=== PATIENT | male | born 1935 | race Caucasian/White ===

== ENCOUNTER 2016-08-20 06:52 | Day surgery (SDC) | payer MEDICARE, OTHER ==
[2016-08-20] VITALS (7 sets, daily range): BP systolic 119–141; BP diastolic 60–75; PULSE 60–89; RESP 16–20; TEMP 97.9–98; O2SAT 93–99
[~2016-08-20] VITALS: Ht 171.4 cm; Wt 86.0 kg
[~2016-08-20 06:52] MED LIST: B-122000 PO; CHOL50006 PO; CHRO200C PO; ENAL2.5 PO; FISH1000 PO; FLUT1INH7 PO; HUMSS SQ; LANTUS2P SC; MIRA25TA PO; SIMV40 PO; SPIRCAP INH; TAB-TAB PO; XANA2TAB2 PO
[2016-08-20] MEDS ORDERED: CHRO200C PO (07:29)
[2016-08-20] MEDS ORDERED: XANA2TAB2 PO (07:29)
[2016-08-20] MEDS ORDERED: ENAL2.5T PO (07:29)
[2016-08-20] MEDS ORDERED: D 50CAP (07:29)
[2016-08-20] MEDS ORDERED: HUMALOG SQ (07:29)
[2016-08-20] MEDS ORDERED: MULT1TAB84 PO (07:29)
[2016-08-20] MEDS ORDERED: FLUT1INH7 INH (07:29)
[2016-08-20] MEDS ORDERED: FISH500C PO (07:29)
[2016-08-20] MEDS ORDERED: ZOCO40TA PO (07:29)
[2016-08-20] MEDS ORDERED: LANTUS2P SQ (07:29)
[2016-08-20] MEDS ORDERED: CYAN5SUB SL (07:29)
[2016-08-20] MEDS ORDERED: SODIUM CHLOR 0.9% 1000 ML INJ 1,000 ML IV SCH (07:30)
[2016-08-20 07:55] LABS: APTT (PATIENT) 43.3 SEC (24.3-30.1); PROTHROMBIN TIME - PATIENT 11.2 SEC (9.8-11.6)
[2016-08-20 08:00] LABS: BICARBONATE 28.3 MEQ/L (21.0-32.0); POTASSIUM 4.1 MEQ/L (3.5-5.1)
[2016-08-20 10:04] LABS: GROSS BLOOD TUBE #1 0 (0); GROSS BLOOD TUBE #2 TRACE (0); GROSS BLOOD TUBE #3 TRACE (0); SUPERNATE COLOR TUBE #1 CLEAR (CLEAR); SUPERNATE COLOR TUBE #2 CLEAR (CLEAR); SUPERNATE COLOR TUBE #3 CLEAR (CLEAR); VOLUME TUBE # 1 2.9 ML; VOLUME TUBE # 4 4.8 ML
[2016-08-20 10:05] LABS: CSF LYMPHOCYTES 22 %; CSF MONOCYTES 16 %; CSF NEUTROPHILS 62 %; SUPERNATE COLOR TUBE #4 CLEAR (CLEAR); WBC TUBE #4 2 /MM3 (0-10)
[2016-08-20 10:09] LABS: GROSS BLOOD TUBE #4 TRACE (0)
--- NOTE | 2016-08-20 11:21 | RADRPT ---
EXAM DATE/TIME: 08/20/2016 09:21 [facility] COMPARISON: LUMBAR PUNCTURE, August 08, 2014, 7:51. INDICATIONS : Patient with history of right leg weakness and thoracic spinal cord lesion in need of lumbar puncture . MEDICAL HISTORY : HTN, Diabetes, COPD, Kidney stones, Dialysis, Colorectal cancer, Ureteral cancer, Chemotherapy, Lung cancer SURGICAL HISTORY : Partial colectomy, Colostomy reversal, Lung biopsy ENCOUNTER: Initial ACUITY: 3 months PAIN SCORE: 0/10 LUMBAR PUNCTURE TIME: 0838 hours FLUORO TIME: 0.4 minutes IMAGE SERIES: 0 ACCESS LEVEL: L2-3 FLUID: 17 cc of clear CSF was collected and sent to the laboratory for analysis. PROCEDURE : 1. Fluoroscopic guided lumbar puncture. The risks, benefits and alternatives to the procedure were explained and verbal and written consent w as obtained. The site was prepped in sterile fashion. Full sterile technique was used, including ca p, mask, sterile gloves and gown and a large sterile sheet. Hand hygiene and 2% chlorhexidine and/or betadine/alcohol prep was utilized per protocol for cutaneous antisepsis. The skin and subcutaneous tissues were infiltrated with local anesthetic solution. With fluoroscopic guidance the lumbar thecal sac was punctured at the level above. The fluid describ ed above was removed without difficulty. The patient tolerated the procedure well and there were no complications. CONCLUSION: Uncomplicated fluoroscopically guided lumbar puncture. Marvin Elizabeth MD on August 20, 2016 at 11:20 Board Certified Radiologist. This report was verified electronically.
[2016-08-20] MEDS ORDERED: ACETAMINOPHEN 325 MG TAB PO PRN (11:45)
[2016-08-20] MEDS ORDERED: oxyCODONE/ACETAMINOPHEN 5 MG/325 MG TAB PO PRN (11:45)
[2016-08-21 15:49] LABS: OLIGOCLONAL BANDING CSF 1 bands (()); OLIGOCLONAL BANDING INTERPRET 0 bands (<4); OLIGOCLONAL BANDING SERUM 1 bands (())
== END 2016-08-20 12:00 | disposition home or self-care (01) ==
LOC: HROP 06:52 → HRIP 06:53 → HROP 12:00
DX: R53.1 Weakness (principal); G95.9 Disease of spinal cord, unspecified; J44.9 Chronic obstructive pulmonary disease, unspecified; I10 Essential (primary) hypertension; E11.9 Type 2 diabetes mellitus without complications; Z99.2 Dependence on renal dialysis; Z85.118 Personal history of other malignant neoplasm of bronchus and lung; Z85.038 Personal history of other malignant neoplasm of large intestine; Z87.442 Personal history of urinary calculi; Z85.46 Personal history of malignant neoplasm of prostate; Z87.891 Personal history of nicotine dependence
CPT/HCPCS: 62270; 77003; 80048; 82945; 83916; 84157; 85610; 85730; 88112; 89051; J1642

== ENCOUNTER 2016-12-05 06:10 | Day surgery (SDC) | payer MEDICARE, OTHER ==
[~2016-12-05] VITALS: Ht 171.4 cm; Wt 87.0 kg
[~2016-12-05 06:10] MED LIST changes: -B-122000 PO; -CHOL50006 PO; +CYAN5SUB SL; +D 50CAP PO; -ENAL2.5 PO; +ENAL2.5T PO; -FISH1000 PO; +FISH500C PO; +FLUT1INH7 INH; -FLUT1INH7 PO; +HUMALOG SQ; -HUMSS SQ; -LANTUS2P SC; +LANTUS2P SQ; -MIRA25TA PO; +MULT1TAB84 PO; -SIMV40 PO; -SPIRCAP INH; -TAB-TAB PO; +ZOCO40TA PO
[2016-12-05] MEDS ORDERED: CYAN2500 PO (06:51)
[2016-12-05] MEDS ORDERED: MULT-65 PO (06:51)
[2016-12-05 07:00] VITALS: BP 171/94; PULSE 76; RESP 18; TEMP 98; O2SAT 94
[2016-12-05] MEDS ORDERED: ceFAZolin 2 GM PREMIX 50 ML - implanted port removal IV SCH (07:00)
[2016-12-05] MEDS ORDERED: SODIUM CHLORIDE 0.9% 1000 ML IV SCH (07:00)
[2016-12-05] MEDS ORDERED: MIDAZOLAM HCL 2 MG/2 ML VIAL ONE ×2 (08:11)
[2016-12-05 09:20] VITALS: BP 206/103; PULSE 76; RESP 18; TEMP 97.2; O2SAT 92
[2016-12-05 09:35] VITALS: BP 191/102; PULSE 75; RESP 18; O2SAT 97
--- NOTE | 2016-12-05 09:59 | PD.RAD ---
Post Procedure Progress Note Pre Procedure Diagnosis: (1) Cancer of sigmoid colon Post Procedure Diagnosis: (1) Cancer of sigmoid colon Procedure Date: Dec 05, 2016 Supervising Radiologist: Marvin Elizabeth Proceduralist/Assist: Tyrese Lopez RT(R) Anesthesia: Conscious Sedation Plan of Activity Patient to Unit: ROPU Patient Condition: Good See PACS Report for procedural detail/treatment Central Venous Access Device Procedure 1 Left Internal Jugular Infusaport Removal single lumen Marvin Elizabeth MD Dec 05, 2016 09:59
[2016-12-05] MEDS ORDERED: SODIUM CHLORIDE 0.9% FLUSH 10 ML FLUSH IVF PRN (10:00)
[2016-12-05 10:05] VITALS: BP 140/106; PULSE 75; RESP 18; O2SAT 94
[2016-12-05 10:35] VITALS: BP 161/84; PULSE 74; RESP 18; O2SAT 96
[2016-12-05] MEDS ORDERED: ENALAPRIL MALEATE 2.5 MG TAB PO ONE (11:00)
--- NOTE | 2016-12-05 12:36 | RADRPT ---
EXAM DATE/TIME: 12/05/2016 00:00 [facility] COMPARISON: No previous studies available for comparison. INDICATIONS : Patient no longer needs left infusaport . MEDICAL HISTORY : 1. Lung cancer 2. colon cancer 3. bladder cancer 4. Devics disease 5. DM 6. HTN 7. kidney stones SURGICAL HISTORY : 1. Appendectomy 2. Lt infusaport 3. Colon resection 4. rt lung bx 5. ileostomy reversal ENCOUNTER: Initial ACUITY: > 1 year PAIN SCORE: 0/10 SEDATION TIME: 30 minutes 1.) 2 mg midazolam (Versed) IV 2.) 100 mcg fentanyl (Sublimaze) IV Prophylactic antibiotics were administered with appropriate pre-procedure timing. Vancomycin within 2 hrs of procedure, Ancef (or alternative) within 1 hr of procedure. PROCEDURE : 1. Removal of Jnhgry-o-adaf. 2. Conscious sedation with continuous EKG and oximetry monitoring. The risk, benefits and potential complications of Pzqrjf-m-Wnkr removal were discussed. Written conse nt was obtained. The patient was placed supine. The chest wall was prepped in sterile fashion. Full sterile techniqu e was used, including cap, mask, sterile gloves and gown, and a large sterile sheet. Hand hygiene an d 2% chlorhexidine and/or Betadine/alcohol prep was utilized per protocol for cutaneous antisepsis. The skin and subcutaneous tissues were infiltrated with local anesthetic solution. A small incision w as made, the subcutaneous pocket was opened. The port was dissected from the subcutaneous tissues and easily removed in one piece. The pocket incision was closed with subcuticular Vicryl suture. Steri -Strips were applied. Conscious sedation was performed with the prescribed dosages and duration as above in the presence of an independent trained radiology nurse to assist in the monitoring of the patient. EKG and oximetry remained stable throughout the procedure. The patient tolerated the procedure well and there were no complications. The patient was sent to post anesthesia recovery in stable condition. CONCLUSION: Uncomplicated port removal as above. Marvin Elizabeth MD on December 05, 2016 at 12:34 Board Certified Radiologist. This report was verified electronically.
--- NOTE | 2016-12-05 12:36 | RADRPT ---
EXAM DATE/TIME: 12/05/2016 07:50 [facility] COMPARISON: No previous studies available for comparison. INDICATIONS : Patient needs access for Poart removal . MEDICAL HISTORY : 1. Bladder cancer 2. colon cancer 3.lung cancer 4. Devics disease SURGICAL HISTORY : 1. Appendectomy 2. lt infusaport 3. colon 4. rt lung bx 5. ileostomy reversal ENCOUNTER: Initial ACUITY: >1 year PAIN SCORE: 0/10 IMAGE SERIES: 0 ACCESS: Left basilic vein DEVICE(S): 1.) 3/4 Mexican Dilator PROCEDURE : 1. Ultrasound guided venous access. The risks, benefits and alternatives to the procedure were explained and verbal and written consent w as obtained. The site was prepped in sterile fashion. Full sterile technique was used, including ca p, mask, sterile gloves and gown and a large sterile sheet. Hand hygiene and 2% chlorhexidine and/or betadine/alcohol prep was utilized per protocol for cutaneous antisepsis. Sterile gel and sterile p robe cover were utilized for ultrasound guidance. The skin and subcutaneous tissues were infiltrate d with local anesthetic solution. With ultrasound guidance the prescribed vein was punctured for venous access. A 4 Mexican dilator was placed and was flushed and locked with heparin. The patient tolerated procedure well and there were n o complications. CONCLUSION: Uncomplicated ultrasound guided venous access. Marvin Elizabeth MD on December 05, 2016 at 12:34 Board Certified Radiologist. This report was verified electronically.
== END 2016-12-05 11:30 | disposition home or self-care (01) ==
LOC: HROP 06:10 → HRIP 06:13 → HROP 11:30
PROVIDERS: ATTEND Internal Medicine Hematology & Oncology
DX: Z45.2 Encounter for adjustment and management of vascular access device (principal); C18.7 Malignant neoplasm of sigmoid colon
CPT/HCPCS: 36410; 36590; 76937; 99152; 99153; J0690; J2250; J3010

== ENCOUNTER 2017-02-08 19:06 | Emergency (ER) | payer MEDICARE, OTHER ==
[~2017-02-08] VITALS: Ht 172.7 cm; Wt 91.0 kg
[~2017-02-08 19:06] MED LIST changes: +CYAN2500 PO; -CYAN5SUB SL; +MULT-65 PO; -MULT1TAB84 PO
[2017-02-08 19:36] VITALS: BP 178/85; PULSE 95; RESP 18; TEMP 98.3; O2SAT 94
--- NOTE | 2017-02-08 19:46 | PD ---
HPI Chief Complaint: Facial Pain or Swelling Time Seen by Provider: 19:45 Travel History International Travel<30 days: No Contact w/Intl Traveler<30days: No History of Present Illness HPI 81-year-old male came to the emergency room with history of facial swelling that started about 2 hours prior to coming to the emergency room. His is giving most of the history since patient is having trouble articulating given the swelling. His right side of the face that she is swollen visibly. Patient says his tongue feels okay but he is having some pain when he tries to swallow. This is never happened to him before. Patient is on enalapril for blood pressure that he's been on for past 2 years. No respiratory distress or drooling currently. Vital signs are otherwise stable. [facility] Past Medical History Narrative Medical list of her past medical, surgical, social and family history is reviewed from the nursing note. Arthritis: Yes Asthma: No Autoimmune Disease: No Anxiety: No Depression: No Heart Rhythm Problems: Yes (01/2015) Cancer: Yes (PROSTATE, BLADDER-2004, Colon 2014, LUNG) Cardiovascular Problems: Yes (CHOLESTEROL, 4CM AAA) High Cholesterol: No Chemotherapy: No Chest Pain: No Congestive Heart Failure: No COPD: Yes (ADVAIR TWICE DAY AND SPIRIVA) Cerebrovascular Accident: No Diabetes: Yes Endocrine: Yes Gastrointestinal Disorders: Yes (ILEOSTOMY reversed 04/22/2015) GERD: No Genitourinary: Yes ( bladder CA) Hepatitis: No Hiatal Hernia: No Hypertension: Yes (pt takes preventive high blood pressure meds) Immune Disorder: No Implanted Vascular Access Dvce: Yes Kidney Stones: Yes (once) Musculoskeletal: Yes (ARTHRITIS) Neurologic: Yes (FELL SEVERAL TIMES LAST YEAR, NEUROPATHY) Psychiatric: No Reproductive: No Respiratory: Yes (COPD; lung nodule rightupper lobe - 01/2015) Immunizations Current: Yes Migraines: No Radiation Therapy: Yes (2005 - 39 days of treatment) Renal Failure: Yes (01/2015) Seizures: No Sleep Apnea: No Thyroid Disease: No Ulcer: No Past Surgical History Abdominal Surgery: Yes (APPY 1950; PARTIAL COLECTOMY/ ILEOSTOMY) AICD: No Appendectomy: Yes Arteriovenous Shunt: No Body Medical Devices: hardware left wrist Cardiac Surgery: No Ear Surgery: No Endocrine Surgery: No Eye Surgery: No Genitourinary Surgery: Yes (CYSTO/ TURBT) Gynecologic Surgery: No Insulin Pump: No Joint Replacement: No Oral Surgery: Yes (tonsillectomy) Pacemaker: No Thoracic Surgery: No Other Surgery: Yes (bilat hands) Social History Alcohol Use: Yes (SOCIAL-beer) Tobacco Use: No (quit 8 years ago) Substance Use: No Allergies-Medications (Allergen,Severity, Reaction): Coded Allergies: CARROLL Inhibitors (Verified Allergy, Severe, Swelling, 02/09/17) ANGIOEDEMA fire ant (Unverified Allergy, Severe, 02/08/17) TONGUE SWELLING prednisone (Unverified Allergy, Severe, RASH, 02/08/17) terbinafine (Unverified Allergy, Mild, rash, 02/08/17) *MDRO Multi-Drug Resistant Organism (Verified Adverse Reaction, Unknown, 02/08/17) 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 Reported Meds & Prescriptions Reported Meds & Active Scripts Active Hydralazine HCl 25 Mg Tablet 25 Mg PO BID Medrol Dosepak (Methylprednisolone) 4 Mg Dspk 4 Mg PO DIRECTED Per Pharmacist direction Reported Diphenhydramine (Diphenhydramine HCl) 25 Mg Tab 25 Mg PO Q6H PRN Multi-Vitamin Daily (Multiple Vitamin) 1 Tab Tab 1 Tab PO DAILY B-12 (Cyanocobalamin) 2,500 Mcg Tab 2,500 Mcg PO DAILY Zocor (Simvastatin) 40 Mg Tab 40 Mg PO DAILY Fish Oil ([place]-3 Fatty Acids) 500 Mg Cap 600 Mg PO DAILY Humalog Inj (Insulin Human Lispro) 1,000 Unit/10 Ml Vial 6 Units SQ TIDAC Lantus Inj (Insulin Glargine) 1,000 Unit/10 Ml Vial 34 Units SQ HS Breo Ellipta Inh (Fluticasone/Vilanterol) 200-25 Mcg/Act Inh 1 Puff INH DAILY Use daily at the same time. Enalapril (Enalapril Maleate) 2.5 Mg Tab 2.5 Mg PO DAILY Chromium Picolinate Unknown Strength Cap Unknown Dose PO DAILY D 5000 (Cholecalciferol) 5,000 Unit Cap 1 Cap PO DAILY Xanax (Alprazolam) 2 Mg Tab 2 Mg PO Q6HR Narrative Medication List of her home medications reviewed from the nursing note. Review of Systems Except as stated in HPI: all other systems reviewed are Neg HENT: Positive: Other (swelling of the face and that cheek) Physical Exam Narrative GENERAL: Awake, alert, obese, moderate distress SKIN: Focused skin assessment warm/dry. HEAD: Atraumatic. Normocephalic. EYES: Pupils equal and round. No scleral icterus. No injection or drainage. ENT: No nasal bleeding or discharge. Mucous membranes pink and moist. Swelling of his right cheek and the anterior tonsillar pillar NECK: Trachea midline. No JVD. CARDIOVASCULAR: Regular rate and rhythm. No murmur appreciated. RESPIRATORY: No accessory muscle use. Clear to auscultation. Breath sounds equal bilaterally. GASTROINTESTINAL: Abdomen soft, non-tender, nondistended. Hepatic and splenic margins not palpable. MUSCULOSKELETAL: No obvious deformities. No clubbing. No cyanosis. No edema. NEUROLOGICAL: Awake and alert. No obvious cranial nerve deficits. Motor grossly within normal limits. Normal speech. PSYCHIATRIC: Appropriate mood and affect; insight and judgment normal. Data Data Last Documented VS Vital Signs Date Time Temp Pulse Resp B/P (MAP) Pulse Ox O2 Delivery O2 Flow Rate FiO2 02/09/17 01:03 78 16 178/88 (118) 99 02/09/17 00:17 Room Air 02/08/17 23:34 2.00 02/08/17 19:36 98.3 Orders Orders Ecg Monitoring (02/08/17 20:06) Iv Access Insert/Monitor (02/08/17 20:06) Oximetry (02/08/17 20:06) Diphenhydramine Inj (Benadryl Inj) (02/08/17 20:15) Methylprednisolone So Succ Inj (Solumedr (02/08/17 20:15) Famotidine Inj (Pepcid Inj) (02/08/17 20:15) Sodium Chloride 0.9% Flush (Ns Flush) (02/08/17 20:15) Epinephrine (1:1000) Inj (Adrenalin (1:1 (02/08/17 20:15) Ed Discharge Order (02/09/17 00:29) MDM Medical Decision Making Medical Screen Exam Complete: Yes Emergency Medical Condition: Yes Medical Record Reviewed: Yes Differential Diagnosis angioedema, CARROLL inhibitor related injury Narrative Course 8:34 PM patient was given IV Solu-Medrol, IV Benadryl, IV Pepcid and epinephrine. I'll watch him for 4 hours. If the swelling comes down significantly patient will be discharged home otherwise he will be admitted. 10:20 PM I just reassessed the patient and he says he's feeling little better and feels like the swelling is coming down. Procedures EKG Prior to Arrival: No Scripts Hydralazine HCl (Hydralazine HCl) 25 Mg Tablet 25 MG PO BID for Blood Pressure Management, #30 TAB 0 Refills Prov: Chelo Tomlinson MD 02/09/17 Methylprednisolone Dosepak (Medrol Dosepak) 4 Mg Dspk 4 MG PO DIRECTED, #1 DSPK 0 Refills Per Pharmacist direction Prov: Chelo Tomlinson MD 02/09/17 Franklyn Bellamy MD Feb 08, 2017 19:46
[2017-02-08] MEDS ORDERED: methylPREDNISolone SOD SUCC 125 MG/2 ML VIAL IV PUSH ONE (20:15)
[2017-02-08] MEDS ORDERED: FAMOTIDINE 20 MG/2 ML VIAL IV PUSH ONE (20:15)
[2017-02-08] MEDS ORDERED: EPINEPHrine HCL (1:1000) 1 MG/ML VIAL IM ONE (20:15)
[2017-02-08] MEDS ORDERED: diphenhydrAMINE HCL 50 MG/ML VIAL IVP ONE (20:15)
[2017-02-08] MEDS ORDERED: SODIUM CHLORIDE 0.9% FLUSH 10 ML FLUSH IV FLUSH PRN (20:15)
[2017-02-08] MEDS ORDERED: DIPH25TA2 PO (20:40)
[2017-02-08 21:40] VITALS: BP 189/86; PULSE 87; RESP 16
--- NOTE | 2017-02-08 23:10 | PD ---
Physical Exam Date Seen by Provider: Feb 08, 2017 Time Seen by Provider: 23:09 Narrative Accepted in transfer of care from Dr. Bellamy GENERAL: Well-developed well-nourished obese male in no acute distress no respiratory distress SKIN: Warm and dry. HEAD: Normocephalic. EYES: No scleral icterus. No injection or drainage. ENT: Uvular angioedema, right cheek angioedema NECK: Supple, trachea midline. No JVD or lymphadenopathy. CARDIOVASCULAR: Regular rate and rhythm without murmurs, gallops, or rubs. RESPIRATORY: Breath sounds equal bilaterally. No accessory muscle use. Data Data Last Documented VS Vital Signs Date Time Temp Pulse Resp B/P (MAP) Pulse Ox O2 Delivery O2 Flow Rate FiO2 02/09/17 00:17 88 26 178/90 (119) 98 Room Air 02/08/17 23:34 2.00 02/08/17 19:36 98.3 Orders Orders Ecg Monitoring (02/08/17 20:06) Iv Access Insert/Monitor (02/08/17 20:06) Oximetry (02/08/17 20:06) Diphenhydramine Inj (Benadryl Inj) (02/08/17 20:15) Methylprednisolone So Succ Inj (Solumedr (02/08/17 20:15) Famotidine Inj (Pepcid Inj) (02/08/17 20:15) Sodium Chloride 0.9% Flush (Ns Flush) (02/08/17 20:15) Epinephrine (1:1000) Inj (Adrenalin (1:1 (02/08/17 20:15) Ed Discharge Order (02/09/17 00:29) [facility] Medical Record Reviewed: Yes Supervised Visit with KORY: No Differential Diagnosis Accepted in transfer of care from Dr. Bellamy please refer to her dictation Narrative Course Accepted in transfer of care from Dr. Bellamy for follow up of response to medication intervention for angioedema secondary to lisinopril At 12:30 patient continues to demonstrate even further diminishment of the angioedema that had been noted to the right cheek and the uvula patient's speech is better there is no coughing or any congestion patient states that he will go home he does not want to stay therefore write a prescription for Medrol Dosepak ( reports no adverse reaction to medrol dosepak) patient will be discontinued off of lisinopril/CARROLL inhibitor's and will provide prescription for hydarlazine . Diagnosis Primary Impression: CARROLL inhibitor-aggravated angioedema Additional Impression: HTN (hypertension) Referrals: Primary Care Physician 2 days Patient Instructions: General Instructions Additional Instruction: Do not take any lisinopril in the future or any other CARROLL inhibitors Take hydralazine as your new blood pressure medication to replace lisinopril Follow-up with your primary care provider on Friday call office to schedule follow-up appointment Return to the emergency department for any concerns or change in condition; and return immediately to the emergency department for any lip cheek tongue or throat swelling Med/Other Pt SpecificInfo: Prescription(s) given Scripts Hydralazine HCl (Hydralazine HCl) 25 Mg Tablet 25 MG PO BID for Blood Pressure Management, #30 TAB 0 Refills Prov: Chelo Tomlinson MD 02/09/17 Methylprednisolone Dosepak (Medrol Dosepak) 4 Mg Dspk 4 MG PO DIRECTED, #1 DSPK 0 Refills Per Pharmacist direction Prov: Chelo Tomlinson MD 02/09/17 Disposition: 01 DISCHARGE HOME Condition: Stable Chelo Tomlinson MD Feb 08, 2017 23:10
[2017-02-08 23:34] VITALS: BP 184/90; PULSE 77; RESP 16; O2SAT 98
[2017-02-09 00:17] VITALS: BP 178/90; PULSE 88; RESP 26; O2SAT 98
[2017-02-09] MEDS ORDERED: MEDR4PAK PO (00:38)
[2017-02-09] MEDS ORDERED: HYDR-3799 PO (00:38)
[2017-02-09 01:03] VITALS: BP 178/88
== END 2017-02-09 01:05 | disposition home or self-care (01) ==
LOC: PHED 19:06
DX: T78.3XXA Angioneurotic edema, initial encounter (principal); T46.4X5A Adverse effect of angiotensin-converting-enzyme inhibitors, initial encounter; E11.9 Type 2 diabetes mellitus without complications; I10 Essential (primary) hypertension; N19 Unspecified kidney failure; Z79.4 Long term (current) use of insulin; Z87.39 Personal history of other diseases of the musculoskeletal system and connective tissue; Z86.79 Personal history of other diseases of the circulatory system; Z87.09 Personal history of other diseases of the respiratory system; Z87.19 Personal history of other diseases of the digestive system; Z87.448 Personal history of other diseases of urinary system; Z86.69 Personal history of other diseases of the nervous system and sense organs
CPT/HCPCS: 96372; 96374; 96375; 99284; J0171; J1200; J2930

== ENCOUNTER 2017-06-30 06:08 | Day surgery (SDC) | payer MEDICARE, OTHER ==
[~2017-06-30] VITALS: Ht 170.2 cm; Wt 93.2 kg
[2017-06-30] VITALS (8 sets, daily range): BP systolic 110–140; BP diastolic 60–75; PULSE 52–75; RESP 18–20; TEMP 97.6–98.1; O2SAT 91–95
[~2017-06-30 06:08] MED LIST changes: +DIPH25TA2 PO; +HYDR-3799 PO; +MEDR4PAK PO
[2017-06-30] MEDS ORDERED: CARD120T4 PO (06:49)
[2017-06-30] MEDS ORDERED: SODIUM CHLOR 0.9% 1000 ML INJ 1,000 ML IV SCH (07:00)
[2017-06-30] MEDS ORDERED: MIDAZOLAM HCL 2 MG/2 ML VIAL ONE (07:47)
[2017-06-30] MEDS ORDERED: oxyCODONE/ACETAMINOPHEN 5 MG/325 MG TAB PO PRN (09:15)
--- NOTE | 2017-06-30 10:12 | RADRPT ---
EXAM DATE/TIME: 06/30/2017 08:37 [facility] COMPARISON: No previous studies available for comparison. INDICATIONS : Left lung mass. SEDATION TIME: 30 minutes BIOPSY SITE: Left MEDICATION(S): 1.) 1 mg midazolam (Versed) IV 2.) 75 mcg fentanyl (Sublimaze) IV DEVICE(S): 1.) 20 gauge Temno core biopsy needle MEDICAL HISTORY : Colon cancer. SURGICAL HISTORY : Colon resection. ENCOUNTER: Initial ACUITY: 1 day PAIN SCORE: 0/10 LOCATION: Left chest A total of two core specimen(s) were obtained and sent to the laboratory for pathologic evaluation. PROCEDURE: 1. CT guided lung biopsy. 2. Conscious sedation with continuous EKG and oximetry monitoring. 3. EKG and oximetry remained stable throughout the procedure. Prior to the procedure informed consent was obtained. Any appropriate prior imaging studies were rev iewed. Using automated exposure control and adjustment of the mA and/or kV according to patient size, radiation dose was kept as low as reasonably achievable to obtain optimal diagnostic quality images. DICOM format image data is available electronically for review and comparison. The site was prepped in a sterile fashion. Full sterile technique was used, including cap, mask, kenrick rile gloves and gown and a large sterile sheet. Hand hygiene and 2% chlorhexidine and/or betadine/al cohol prep was utilized per protocol for cutaneous antisepsis. The skin and subcutaneous tissues wer e infiltrated with local anesthetic solution. With CT guidance the previously identified target was localized. 10 cm Stacy blunt needle was advan tanvi to the edge of the lesion. Biopsy was performed using the prescribed needle as above. Adequate h emostasis was obtained with compression at the puncture site. Follow-up CT scan reveals no pneumothorax. Conscious sedation was performed with the prescribed dosages and duration as above in the presence of an independent trained radiology nurse to assist in the monitoring of the patient. EKG and oximetry remained stable throughout the procedure. The patient tolerated the procedure well and there were no complications. The patient was sent to Radiology Outpatient Unit in stable condition. CONCLUSION: Uncomplicated CT guided biopsy. 2, 20 gauge core biopsies were obtained and sent to pathology for analysis. Jonatan Pichardo MD on June 30, 2017 at 10:08 Board Certified Radiologist. This report was verified electronically.
--- NOTE | 2017-06-30 10:34 | RADRPT ---
EXAM DATE/TIME: 06/30/2017 10:00 [facility] COMPARISON: CT NEEDLE BIOPSY LUNG, LEFT, June 30, 2017, 8:37. CHEST EXPIRATION ONLY, June 06, 2015, 11:35. INDICATIONS : Evaluate for pneumothorax, post biopsy. MEDICAL HISTORY : Carcinoma, colon. SURGICAL HISTORY : Colon resection. ENCOUNTER: Initial ACUITY: 1 day PAIN SCORE: 0/10 LOCATION: Bilateral chest FINDINGS: A single frontal expiratory view of the chest was performed. The lungs are symmetrically aerated and clear. No evidence of pneumothorax. Mediastinal structures are in the midline. The patient's known nodule at the left lung base is not identified. The cardio-mediastinal contours and bronchopulmonary markings are unremarkable for an expiratory exam . Osseous structures are intact. CONCLUSION: 1. No pneumothorax identified following biopsy the patient's left lower lobe nodule. Renard Ross MD on June 30, 2017 at 10:30 Board Certified Radiologist. This report was verified electronically.
--- NOTE | 2017-06-30 10:41 | PD.RAD ---
Post CT Procedure Prog Note Pre Procedure Diagnosis: (1) Lung mass (2) Cancer of sigmoid colon Post Procedure Diagnosis: (1) Lung mass (2) Cancer of sigmoid colon Procedure Date: Jun 30, 2017 Supervising Radiologist: Jonatan Pichardo Anesthesia: Local, Analgesia, Conscious Sedation Plan of Activity Patient to Unit: ROPU Patient Condition: Good See PACS Report for procedural detail/treatment Biopsy Imaging Guidance: CT Side: Left Biopsy Procedure: Lung Specimen: Core Biopsy (20 gauge x 2) Jonatan Pichardo MD Jun 30, 2017 10:41
== END 2017-06-30 13:51 | disposition home or self-care (01) ==
LOC: HRAD 06:08 → HRIP 06:09 → HRAD 13:51
PROVIDERS: ATTEND Internal Medicine Hematology & Oncology
DX: R91.8 Other nonspecific abnormal finding of lung field (principal); C18.7 Malignant neoplasm of sigmoid colon; J44.9 Chronic obstructive pulmonary disease, unspecified
CPT/HCPCS: 32405; 71045; 77012; 88305; 88333; 88341; 88342; 99152; 99153; J2250; J3010; J7030

== ENCOUNTER 2017-07-07 08:23 | Day surgery (SDC) | payer MEDICARE, OTHER ==
[~2017-07-07] VITALS: Ht 171.4 cm; Wt 93.6 kg
[~2017-07-07 08:23] MED LIST changes: +CARD120T4 PO; -CHRO200C PO; -ENAL2.5T PO; -MEDR4PAK PO
[2017-07-07 08:37] VITALS: BP 173/82; PULSE 88; RESP 20; TEMP 98.3; O2SAT 91
[2017-07-07] MEDS ORDERED: VANCOMYCIN 1000 MG/NS 250 ML - implanted port/tunneled catheter IV SCH ×2 (08:45)
[2017-07-07] MEDS ORDERED: CEFAZOLIN INJ 2,000 MG in SODIUM CHLORIDE 0.9% INJ 100 ML IV SCH (08:45)
[2017-07-07] MEDS ORDERED: POVIDONE IODINE 5% (ANTISEPSIS KIT) 4 APPLICATIONS EACH NARE SCH (08:45)
[2017-07-07] MEDS ORDERED: CHLORHEXIDINE GLUCONATE 2 % 1 PACK (2 CLOTHS) TOPICAL SCH (08:45)
[2017-07-07] MEDS ORDERED: MUPIROCIN 2% OINT 1 APPLIC/GM SYR EACH NARE SCH (08:45)
[2017-07-07] MEDS ORDERED: SPIRCAP INH (08:46)
[2017-07-07] MEDS ORDERED: ADVA250A INH (08:46)
[2017-07-07] MEDS ORDERED: SODIUM CHLORIDE 0.9% 1000 ML IV SCH (09:00)
[2017-07-07] MEDS ORDERED: MIDAZOLAM HCL 5 MG/5 ML VIAL ONE (09:59)
[2017-07-07] MEDS ORDERED: fentaNYL CITRATE 250 MCG/5 ML AMP ONE (09:59)
[2017-07-07] MEDS ORDERED: LIDOCAINE 1%/EPINEPHrine 1:100,000 SOLN 30 ML VIAL ONE (10:27)
[2017-07-07 11:10] VITALS: BP 150/67; PULSE 70; RESP 18; TEMP 97.8; O2SAT 91
--- NOTE | 2017-07-07 11:10 | PD.RAD ---
Post Procedure Progress Note Pre Procedure Diagnosis: (1) Lung mass (2) Cancer of sigmoid colon Post Procedure Diagnosis: (1) Lung mass (2) Cancer of sigmoid colon Procedure Date: Jul 07, 2017 Supervising Radiologist: Alexsander Boss Proceduralist/Assist: Tyrese Lopez, RT(R), Debra Adamson RT(R)(CV) Anesthesia: Conscious Sedation Plan of Activity Patient to Unit: ROPU Patient Condition: Good See PACS Report for procedural detail/treatment Alexsander Boss MD Jul 07, 2017 11:10
--- NOTE | 2017-07-07 11:17 | RADRPT ---
EXAM DATE/TIME: 07/07/2017 10:13 [facility] COMPARISON: No previous studies available for comparison. INDICATIONS : Patient presents with colon cancer in need of port placement for chemotherapy treatment. MEDICAL HISTORY : hypertension diabetes mellitus hyperlipidemia COPD prostate cancer bladder cancer lung cancer colon cancer stage III and AAA SURGICAL HISTORY : Appendectomy Partial colon Colectomy Bladder scraping x3 Hardware left wrist Multiple hand surgeries status post extravasation ENCOUNTER: Initial ACUITY: >1 year PAIN SCORE: 0/10 LOCATION: N/A FLUORO TIME: 0.9 minutes IMAGE SERIES: 0 SEDATION TIME: 30 minutes ACCESS: Right internal jugular vein SEDATION: 1.) 2 mg midazolam (Versed) IV 2.) 100 mcg fentanyl (Sublimaze) IV Prophylactic antibiotics were administered with appropriate pre-procedure timing. Vancomycin within 2 hours of procedure, Ancef (or alternative) within 1 hour of procedure. DEVICE: 1. 8 Kisw[place]ili single lumen BioFlo port 8fr angiodynamics PROCEDURE : 1. Continuous pulse oximetry and EKG monitoring. 2. Intravenous conscious sedation. 3. Ultrasound guidance for venous access. 4. Fluoroscopic guided implantable central venous port placement. The patient was placed supine. The neck was prepped in sterile fashion. Full sterile technique was u sed, including cap, mask, sterile gloves and gown, and a large sterile sheet. Hand hygiene and 2% ch lorhexidine Betadine was utilized per protocol for cutaneous antisepsis with appropriate dry time for site. Sterile gel and sterile probe cover were utilized for ultrasound guidance. The skin and sub cutaneous tissues were infiltrated with local anesthetic solution. Under direct ultrasound guidance, central venous access was accomplished in the targeted vessel. The ultrasound images depicting access guidance were stored and saved to PACS for permanent record. A s ubcutaneous pocket was created using blunt dissection. The port was introduced to the pocket. The c atheter tubing was fed through a subcutaneous tunnel to the venotomy site. The catheter tubing was c ut to a suitable length and then was introduced through a valved Peel-Away sheath and positioned with catheter tubing tip at the cavo-atrial junction level. The pocket incision was closed with subcutic ular Vicryl suture. Steri-Strips were applied. The port was flushed and locked with heparin solutio n per protocol. Sterile dressing was applied to the site. The patient tolerated the procedure well. Conscious sedation was performed with the prescribed dosages and duration as above in the presence of an independent trained radiology nurse to assist in the monitoring of the patient. EKG and oximetry remained stable throughout the procedure. The patient tolerated the procedure well and there were no complications. The patient was sent to post anesthesia recovery in stable condition. CONCLUSION: Uncomplicated ultrasound and fluoroscopic guided implanted central venous port catheter placement as described in detail above. An 8 Kiswahili Power port was placed. Alexsander Boss MD on July 07, 2017 at 11:15 Board Certified Radiologist. This report was verified electronically.
[2017-07-07 11:25] VITALS: BP 117/63; PULSE 65; RESP 18; O2SAT 95
[2017-07-07 11:55] VITALS: BP 138/67; PULSE 61; RESP 18; O2SAT 95
[2017-07-07 12:25] VITALS: BP 132/53; PULSE 69; RESP 18; O2SAT 93
== END 2017-07-07 13:02 | disposition home or self-care (01) ==
LOC: HRIP 08:23 → HROP 08:23
PROVIDERS: ATTEND Internal Medicine Hematology & Oncology
DX: Z45.2 Encounter for adjustment and management of vascular access device (principal); C18.7 Malignant neoplasm of sigmoid colon; C61 Malignant neoplasm of prostate; E11.9 Type 2 diabetes mellitus without complications; E78.5 Hyperlipidemia, unspecified; I10 Essential (primary) hypertension; J44.9 Chronic obstructive pulmonary disease, unspecified; I71.4 Abdominal aortic aneurysm, without rupture
CPT/HCPCS: 36561; 76937; 77001; 99152; 99153; C1788; J0690; J1642; J2250; J3010; J3370; J7030; J7050

== ENCOUNTER 2017-07-15 13:43 | Day surgery (SDC) | payer MEDICARE, OTHER ==
[~2017-07-15] VITALS: Ht 171.4 cm; Wt 92.7 kg
[~2017-07-15 13:43] MED LIST changes: +ADVA250A INH; -FLUT1INH7 INH; +SPIRCAP INH
[2017-07-15 14:39] LABS: AUTOMATED NEUTROPHIL # 4.3 TH/MM3 (1.8-7.7); BASOPHIL % 0.8 % (0.0-2.0); EOSINOPHIL # 0.1 TH/MM3 (0-0.4); EOSINOPHIL % 1.8 % (0.0-4.0); HEMATOCRIT 38.4 % (39.0-51.0); LYMPH % 18.3 % (9.0-44.0); MEAN CORPUSCULAR HEMOGLOBIN 31.9 PG (27.0-34.0); MEAN CORPUSCULAR HGB CONC 33.9 % (32.0-36.0); MEAN PLATELET VOLUME 7.9 FL (7.0-11.0); MONO % 2.6 % (0.0-8.0); MONOCYTE # 0.1 TH/MM3 (0-0.9); NEUT % 76.5 % (16.0-70.0); PLATELET COUNT 206 TH/MM3 (150-450); RED BLOOD COUNT 4.09 MIL/MM3 (4.50-5.90); WHITE BLOOD COUNT 5.6 TH/MM3 (4.0-11.0)
[2017-07-15 14:45] VITALS: BP 158/72; PULSE 81; RESP 20; TEMP 98.5; O2SAT 96
[2017-07-15] MEDS ORDERED: ceFAZolin 2 GM PREMIX 50 ML - implanted port removal IV SCH (15:15)
[2017-07-15] MEDS ORDERED: SODIUM CHLORIDE 0.9% 1000 ML IV SCH (15:15)
[2017-07-15] MEDS ORDERED: fentaNYL CITRATE 250 MCG/5 ML AMP ONE (16:17)
[2017-07-15] MEDS ORDERED: LORazepam 2 MG/ML VIAL ONE (16:17)
[2017-07-15] MEDS ORDERED: LIDOCAINE 1%/EPINEPHrine 1:100,000 SOLN 30 ML VIAL ONE ×2 (16:19→16:20)
[2017-07-15 17:00] VITALS: BP 157/71; PULSE 81; RESP 18; TEMP 97.8; O2SAT 91
[2017-07-15 17:15] VITALS: BP 157/84; PULSE 84; RESP 17; O2SAT 94
[2017-07-15 17:45] VITALS: BP 145/75; PULSE 80; RESP 18; O2SAT 92
[2017-07-15 18:45] VITALS: BP 138/39; PULSE 82; RESP 18; O2SAT 94
--- NOTE | 2017-07-16 10:39 | RADRPT ---
EXAM DATE/TIME: 07/15/2017 00:00 [place] COMPARISON: No previous studies available for comparison. INDICATIONS : Infected port MEDICAL HISTORY : Hypertension, diabetes, hyperlipidemia, COPD, prostate cancer, bladder cancer, lung cancer, colon can cer stage III, AAA SURGICAL HISTORY : Appendectomy, partial colon, colectomy, bladder scraping X3, hand and wrist surgeries ENCOUNTER: Initial ACUITY: 1 day PAIN SCORE: 0/10 Right chest port 1.) 2 mg lorazepam (Ativan) IV 2.) 100 mcg fentanyl (Sublimaze) IV Prophylactic antibiotics were administered with appropriate pre-procedure timing. Vancomycin within 2 hrs of procedure, Ancef (or alternative) within 1 hr of procedure. PROCEDURE : 1. Removal of [id number]-[id number]. 2. Conscious sedation with continuous EKG and oximetry monitoring. The risk, benefits and potential complications of Smfije-v-Ixre removal were discussed. Written conse nt was obtained. Port pocket appears to have dehisced. The patient was placed supine. The chest wall was prepped in sterile fashion. Full sterile techniqu e was used, including cap, mask, sterile gloves and gown, and a large sterile sheet. Hand hygiene an d 2% chlorhexidine and/or Betadine/alcohol prep was utilized per protocol for cutaneous antisepsis. The skin and subcutaneous tissues were infiltrated with local anesthetic solution. A small incision w as made, the subcutaneous pocket was opened. The port was dissected from the subcutaneous tissues and easily removed in one piece. The pocket was then packed with iodoform gauze. Conscious sedation was performed with the prescribed dosages and duration as above in the presence of an independent trained radiology nurse to assist in the monitoring of the patient. EKG and oximetry remained stable throughout the procedure. The patient tolerated the procedure well and there were no complications. The patient was sent to post anesthesia recovery in stable condition. CONCLUSION: 1. Uncomplicated port removal as above. 2. Port pocket was packed with iodoform gauze. Patient will return this Friday, 07-22 for repacking Jonatan Pichardo MD on July 16, 2017 at 10:35 Board Certified Radiologist. This report was verified electronically.
== END 2017-07-15 19:35 | disposition home or self-care (01) ==
LOC: HSDC 13:43 → HRIP 13:44 → HSDC 19:35
PROVIDERS: ATTEND Radiology Diagnostic Radiology
DX: T80.212A Local infection due to central venous catheter, initial encounter (principal); C34.91 Malignant neoplasm of unspecified part of right bronchus or lung; I10 Essential (primary) hypertension; E11.9 Type 2 diabetes mellitus without complications; J44.9 Chronic obstructive pulmonary disease, unspecified; E78.5 Hyperlipidemia, unspecified; I71.4 Abdominal aortic aneurysm, without rupture; Z85.46 Personal history of malignant neoplasm of prostate; Z85.51 Personal history of malignant neoplasm of bladder; Z85.038 Personal history of other malignant neoplasm of large intestine; Z01.818 Encounter for other preprocedural examination
CPT/HCPCS: 36590; 85025; J0690; J2060; J3010; J7030

== ENCOUNTER 2017-07-18 13:12 | Day surgery (SDC) | payer MEDICARE, OTHER ==
[2017-07-18 13:30] VITALS: BP 182/90; PULSE 87; RESP 18; TEMP 97.6; O2SAT 95
[2017-07-18] MEDS ORDERED: ACETAMINOPHEN/HYDROcodone 325 MG/10 MG TAB PO ONE (14:15)
== END 2017-07-18 15:00 | disposition home or self-care (01) ==
LOC: HROP 13:12 → HRIP 13:14 → HROP 15:00
PROVIDERS: ATTEND Radiology Body Imaging
DX: Z48.00 Encounter for change or removal of nonsurgical wound dressing (principal)
CPT/HCPCS: 99213; G0463

== ENCOUNTER 2017-07-21 13:00 | Day surgery (SDC) | payer MEDICARE, OTHER ==
[2017-07-21 13:15] VITALS: BP 156/81; PULSE 74; RESP 18; TEMP 98.2; O2SAT 93
--- NOTE | 2017-07-21 18:05 | PD.RAD ---
Radiology Note Port pocket dressing changed. Iodoform gauze removed and repacked. Pt to return , 07/24 for repeat dressing change Jonatan Pichardo MD Jul 21, 2017 18:04
== END 2017-07-21 14:34 | disposition home or self-care (01) ==
LOC: HRIP 13:00 → HROP 13:00
PROVIDERS: ATTEND Radiology Body Imaging
DX: Z48.01 Encounter for change or removal of surgical wound dressing (principal)

== ENCOUNTER 2017-07-24 13:04 | Day surgery (SDC) | payer MEDICARE, OTHER ==
[2017-07-24 13:32] VITALS: BP 157/86; PULSE 87; RESP 18; TEMP 97.1; O2SAT 95
== END 2017-07-24 15:10 | disposition home or self-care (01) ==
LOC: HROP 13:04 → HRIP 13:10 → HROP 15:10
PROVIDERS: ATTEND Radiology Body Imaging
DX: Z48.01 Encounter for change or removal of surgical wound dressing (principal); C34.90 Malignant neoplasm of unspecified part of unspecified bronchus or lung; C61 Malignant neoplasm of prostate; C18.7 Malignant neoplasm of sigmoid colon; C67.9 Malignant neoplasm of bladder, unspecified
CPT/HCPCS: 99211; G0463

== ENCOUNTER 2017-07-28 14:00 | Day surgery (SDC) | payer MEDICARE, OTHER ==
[2017-07-28 14:05] VITALS: BP 182/90; PULSE 90; RESP 18; TEMP 98.7; O2SAT 96
== END 2017-07-28 14:45 | disposition home or self-care (01) ==
LOC: HROP 14:00 → HRIP 14:01 → HROP 14:45
PROVIDERS: ATTEND Radiology Body Imaging
DX: Z48.00 Encounter for change or removal of nonsurgical wound dressing (principal); N18.3 Chronic kidney disease, stage 3 (moderate)
CPT/HCPCS: 99212; G0463

== ENCOUNTER 2017-07-31 13:00 | Day surgery (SDC) | payer MEDICARE, OTHER ==
[2017-07-31 13:25] VITALS: BP 161/81; PULSE 87; RESP 18; TEMP 98.4; O2SAT 94
== END 2017-07-31 14:43 | disposition home or self-care (01) ==
LOC: HROP 13:00 → HRIP 13:04 → HROP 14:43
PROVIDERS: ATTEND Radiology Body Imaging
DX: Z48.01 Encounter for change or removal of surgical wound dressing (principal)
CPT/HCPCS: 99212; G0463

== ENCOUNTER 2017-08-04 12:53 | Day surgery (SDC) | payer MEDICARE, OTHER ==
[2017-08-04 13:04] VITALS: BP 182/97; PULSE 92; RESP 20; TEMP 98.5; O2SAT 95
== END 2017-08-04 14:00 | disposition home or self-care (01) ==
LOC: HROP 12:53 → HRIP 12:56 → HROP 14:00
PROVIDERS: ATTEND Radiology Diagnostic Radiology
DX: Z48.00 Encounter for change or removal of nonsurgical wound dressing (principal)
CPT/HCPCS: 99213; G0463

== ENCOUNTER 2017-08-07 12:56 | Day surgery (SDC) | payer MEDICARE, OTHER ==
[2017-08-07 13:25] VITALS: BP 169/86; PULSE 92; RESP 20; TEMP 98.2; O2SAT 96
== END 2017-08-07 14:30 | disposition home or self-care (01) ==
LOC: HROP 12:56 → HRIP 12:57 → HROP 14:30
PROVIDERS: ATTEND Radiology Body Imaging
DX: Z48.01 Encounter for change or removal of surgical wound dressing (principal)
CPT/HCPCS: 99212; G0463

== ENCOUNTER 2017-08-11 12:53 | Day surgery (SDC) | payer MEDICARE, OTHER ==
[2017-08-11 13:10] VITALS: BP 143/83; PULSE 109; RESP 20; TEMP 98.5; O2SAT 95
== END 2017-08-11 13:45 | disposition home or self-care (01) ==
LOC: HROP 12:53 → HRIP 12:58 → HROP 13:45
PROVIDERS: ATTEND Radiology Body Imaging
DX: C18.7 Malignant neoplasm of sigmoid colon (principal)

== ENCOUNTER 2017-08-14 12:53 | Day surgery (SDC) | payer MEDICARE, OTHER ==
[2017-08-14 13:11] VITALS: BP 155/78; PULSE 93; RESP 20; TEMP 98.5; O2SAT 94
== END 2017-08-14 13:30 | disposition home or self-care (01) ==
LOC: HRIP 12:53 → HROP 12:53
PROVIDERS: ATTEND Radiology Body Imaging
DX: Z48.01 Encounter for change or removal of surgical wound dressing (principal); C18.7 Malignant neoplasm of sigmoid colon; C77.9 Secondary and unspecified malignant neoplasm of lymph node, unspecified; Z85.46 Personal history of malignant neoplasm of prostate
CPT/HCPCS: 99212; G0463

== ENCOUNTER 2017-08-18 12:57 | Day surgery (SDC) | END 2017-08-18 13:58 | disposition home or self-care (01) | DX: Z48.01 Encounter for change or removal of surgical wound dressing (principal) ==

== ENCOUNTER 2017-08-21 12:51 | Day surgery (SDC) | payer MEDICARE, OTHER ==
[2017-08-21 13:10] VITALS: BP 183/92; PULSE 110; RESP 20; TEMP 98.2; O2SAT 93
== END 2017-08-21 13:45 | disposition home or self-care (01) ==
LOC: HROP 12:51 → HRIP 12:53 → HROP 13:45
PROVIDERS: ATTEND Radiology Body Imaging
DX: Z09 Encounter for follow-up examination after completed treatment for conditions other than malignant neoplasm (principal)
CPT/HCPCS: 99211; G0463

== ENCOUNTER 2017-08-26 13:51 | Day surgery (SDC) | payer MEDICARE, OTHER ==
[2017-08-26 14:08] VITALS: BP 181/84; PULSE 96; RESP 18; TEMP 97.8; O2SAT 91
[2017-08-26 15:35] VITALS: BP 177/85; PULSE 81; RESP 16; TEMP 98.3; O2SAT 93
--- NOTE | 2017-08-26 15:44 | PD.RAD ---
Post Procedure Progress Note Pre Procedure Diagnosis: (1) Lung mass (2) port site cellulitis Post Procedure Diagnosis: (1) Lung mass (2) port site cellulitis Procedure Date: August 26, 2017 Supervising Radiologist: Renard Ross Estimated blood loss: none Plan of Activity Patient to Unit: [facility] Patient Condition: Good Additional Comments: PICC placed via the right arm. Catheter length 45 cm Catheter tip in the SVC Right chest wall site evaluated. This has nearly completely healed. Packing removed. Pt advised to keep the site clean, dry and change the dressing daily. Full dictated report to follow See PACS Report for procedural detail/treatment Renard Ross MD August 26, 2017 15:44
[2017-08-26] MEDS ORDERED: SODIUM CHLORIDE 0.9% FLUSH 10 ML FLUSH IVF PRN ×2 (15:45)
--- NOTE | 2017-08-26 16:06 | RADRPT ---
EXAM DATE: 08/26/2017 4:00 PM EDT AGE/SEX: 82 years / Male INDICATIONS: Patient presents with lung cancer in need of peripheral intravenous line placement for medication administration. CLINICAL DATA: This is the patient's subsequent encounter. Patient reports that signs and symptoms h ave been present for > 1 year and indicates a pain score of 0/10. MEDICAL/SURGICAL HISTORY: Colon cancerDMAAACRFLung cancerBladder cancerArthritisHigh cholestero lKidney stonesPeripheral neuropathy . Port insertion and removalBilateral cataracts Ileostomy and re versalTonsillectomyWrist sxAppyUreteral stentTURPCystoColon sx COMPARISON: No prior [facility] exams available for comparison. FLUORO TIME (min): 0.55 IMAGE SERIES: 1 ACCESS SITE: Right basilic vein MEDICATION(S): 200 UNITS Heparin IV DEVICE(S): 4 [place] single lumen 45CM Xcela Power PICC PROCEDURE : 1. Ultrasound guidance for venous catheterization. 2. Fluoroscopic guidance. 3. Ultrasound & fluoroscopic guided central venous Power PICC line placement. The risks, benefits and alternatives to the procedure were explained and verbal and written consent w as obtained. The site was prepped in sterile fashion. Full sterile technique was used, including ca p, mask, sterile gloves and gown and a large sterile sheet. Hand hygiene and 2% chlorhexidine prep w as utilized per protocol for cutaneous antisepsis with appropriate dry time for site. Sterile gel a nd sterile probe cover were utilized for ultrasound guidance. The skin and subcutaneous tissues wer e infiltrated with local anesthetic solution. Under direct ultrasound guidance, a suitable vein was accessed and a measuring guidewire was introduc ed and positioned in the central venous system. The ultrasound images depicting access guidance were saved and stored to PACS for permanent record. A Power Injectable PICC line was cut to prescribed length and introduced, positioned with tip at the cavoatrial junction level. The line was flushed and secured per protocol. CONCLUSION: 1. Uncomplicated central venous Power PICC line placement. 2. The PICC line can be used immediately. Electronically signed by: Renard Ross MD 08/26/2017 4:05 PM EDT
[2017-08-27] MEDS ORDERED: SODIUM CHLORIDE 0.9% FLUSH 10 ML FLUSH IVF SCH (09:00)
== END 2017-08-26 16:17 | disposition home or self-care (01) ==
LOC: HROP 13:51 → HRIP 13:53 → HROP 16:17
PROVIDERS: ATTEND Internal Medicine Hematology & Oncology
DX: C34.90 Malignant neoplasm of unspecified part of unspecified bronchus or lung (principal); C61 Malignant neoplasm of prostate; C18.7 Malignant neoplasm of sigmoid colon; G62.9 Polyneuropathy, unspecified; E78.00 Pure hypercholesterolemia, unspecified; N18.9 Chronic kidney disease, unspecified; J44.9 Chronic obstructive pulmonary disease, unspecified; M19.90 Unspecified osteoarthritis, unspecified site; I71.4 Abdominal aortic aneurysm, without rupture; E11.9 Type 2 diabetes mellitus without complications
CPT/HCPCS: 36569; 76937; 77001; C1751; J1642

== ENCOUNTER 2017-08-27 14:55 | Day surgery (SDC) | payer MEDICARE, OTHER | END 2017-08-27 16:45 | disposition home or self-care (01) | LOC: HROP 14:55 → HRIP 14:56 → HROP 16:45 | PROVIDERS: ATTEND Radiology Body Imaging | DX: Z45.89 Encounter for adjustment and management of other implanted devices (principal) | CPT/HCPCS: 99213; G0463 ==